=== PATIENT | male | born 1930 | race Caucasian/White ===

== ENCOUNTER 2022-02-17 21:01 | Inpatient (IN) ==
[2022-02-17] MEDS ORDERED: MORPHINE 2 MG/1 ML SYRINGE IV ONE (21:34)
[2022-02-17] MEDS ORDERED: ONDANSETRON 4 MG/2 ML VIAL IV ONE (21:34)
[2022-02-17] MEDS ORDERED: SODIUM CHLORIDE 0.9% 500 ML IV STA (21:34)
[2022-02-17 22:05] LABS: Basophils # 0.1 10*3/uL (0.0-0.2); Basophils % 0.4 % (0.0-0.8); Eosinophils # 0.1 10*3/uL (0.0-0.87); Eosinophils % 0.5 % (0.00-10.9); Hematocrit 34.2 VOL% (42.0-52.0); Hemoglobin 11.2 GM/DL (14.0-18.0); Immature Granulocytes % 0.6 %; Lymphocytes # 1.4 10*3/uL (1.4-4.0); Lymphocytes % 8.3 % (21.2-54.2); Mean Corpuscular HGB Conc 32.7 GM/DL (32-36); Mean Platelet Volume 10.2 FL (9.6-12.0); Monocytes # 0.9 10*3/uL (0.11-0.8); Monocytes % 5.1 % (1.7-12.7); Neutrophils % 85.1 % (38.7-73.9); Platelet Count 209 T/CUMM (130-400); Red Blood Count 3.64 MC/CUMM (3.8-5.5); Red Cell Distribution Width 12.5 % (9.3-17.3)
[2022-02-17 22:17] LABS: PT Patient Result 10.7 SECS (10.1-12.1)
[2022-02-17 22:23] LABS: Albumin 3.7 G/DL (3.4-5.0); Bilirubin,Total 0.4 MG/DL (0.20-1.00); Calcium 8.7 MG/DL (8.5-10.1); Osmolality,Calculated 290.3 MOS/KG (273-304); Potassium 4.3 MMOL/L (3.5-5.1); Total Protein 6.8 G/DL (6.4-8.2)
[2022-02-17] MEDS ORDERED: PIPERACILLIN/TAZOBACTAM 3,375 MG in SODIUM CHLORIDE 0.9% 100 ML IV STA (23:15)
[2022-02-17] MEDS ORDERED: MAGNESIUM CITRATE 300 ML BOTTLE PO STA (23:15)
[2022-02-17] MEDS ORDERED: MORPHINE 2 MG/1 ML SYRINGE IV PRN (23:27)
[2022-02-17] MEDS ORDERED: ACETAMINOPHEN 325 MG TABLET PO PRN (23:27)
[2022-02-17] MEDS ORDERED: ONDANSETRON 4 MG/2 ML VIAL IV PRN (23:27)
[2022-02-17] MEDS ORDERED: MAGNESIUM HYDROXIDE SUSP 30 ML UDCUP PO STA (23:31)
[2022-02-17] MEDS: SODIUM CHLORIDE 0.9% 1,000 ML IV SCH (23:50)
[2022-02-18 03:14] LABS: Mucus,Urine Occasional /LPF (Occasional); RBC,Urine 1 /HPF (0-4); Squamous Epithelial Cell,Urine Occasional /HPF (0-10)
[2022-02-18 03:15] LABS: Bilirubin,Urine Negative (Negative); Blood, Urine Negative (Negative); Glucose,Urine (UA) Negative (Negative); Ketones,Urine Trace mg/dL (Negative); Nitrite,Urine Negative (Negative); Protein,Urine Negative (Negative); Urine Appearance Clear (Clear); Urine Color Yellow (Yellow); Urine Specific Gravity > 1.030 (1.001-1.035); Urine Urobilinogen 0.2 eU/dL (<2.0); Urine pH 5.5 (4.5-8.0)
[2022-02-18 05:58] LABS: Basophils % 0.2 % (0.0-0.8); Eosinophils % 0.1 % (0.00-10.9); Hematocrit 31.3 VOL% (42.0-52.0); Hemoglobin 10.5 GM/DL (14.0-18.0); Immature Granulocytes % 0.3 %; Immature Granulocytes Absolute 0.04 #; Lymphocytes # 1.5 10*3/uL (1.4-4.0); Lymphocytes % 10.9 % (21.2-54.2); Mean Corpuscular HGB Conc 33.5 GM/DL (32-36); Mean Corpuscular Volume 93.2 FL (87-102); Mean Platelet Volume 10.6 FL (9.6-12.0); Monocytes # 0.8 10*3/uL (0.11-0.8); Monocytes % 6.2 % (1.7-12.7); Neutrophils % 82.3 % (38.7-73.9); Platelet Count 191 T/CUMM (130-400); Red Blood Count 3.36 MC/CUMM (3.8-5.5); Red Cell Distribution Width 12.7 % (9.3-17.3); White Blood Count 13.5 T/CUMM (4-12)
[2022-02-18 06:25] LABS: Albumin 3.2 G/DL (3.4-5.0); Bilirubin,Total 0.8 MG/DL (0.20-1.00); Calcium 8.4 MG/DL (8.5-10.1); Potassium 4.1 MMOL/L (3.5-5.1); Total Protein 6.2 G/DL (6.4-8.2)
[2022-02-18] MEDS ORDERED: NITROGLYCERIN SL 0.4 MG TABLET SL PRN (07:19)
[2022-02-18] MEDS: ASPIRIN EC 81 MG TABLET PO SCH (08:52)
[2022-02-18] MEDS: FOLIC ACID 1 MG TABLET PO SCH (08:52)
[2022-02-18] MEDS: METOPROLOL SUCCINATE XL 25 MG TABLET PO SCH (08:52)
[2022-02-18] MEDS: PANTOPRAZOLE 40 MG TABLET PO SCH (08:52)
[2022-02-18] MEDS: DOCUSATE SODIUM 100 MG CAPSULE PO SCH ×2 (09:00→20:12)
[2022-02-18] MEDS: PIPERACILLIN/TAZOBACTAM 3,375 MG in SODIUM CHLORIDE 0.9% 100 ML IV SCH ×3 (09:01→23:09)
[2022-02-18] MEDS: SODIUM CHLORIDE 0.9% 1,000 ML IV SCH (14:16)
[2022-02-18] MEDS ORDERED: SIMVASTATIN 40 MG TABLET PO SCH (21:00)
[2022-02-18] MEDS ORDERED: TERAZOSIN 1 MG CAPSULE PO SCH (21:00)
[2022-02-19] MEDS: SODIUM CHLORIDE 0.9% 1,000 ML IV SCH (02:52)
[2022-02-19] MEDS: METOPROLOL SUCCINATE XL 25 MG TABLET PO SCH (08:44)
[2022-02-19] MEDS: DOCUSATE SODIUM 100 MG CAPSULE PO SCH (08:44)
[2022-02-19] MEDS: ASPIRIN EC 81 MG TABLET PO SCH (08:44)
[2022-02-19] MEDS: FOLIC ACID 1 MG TABLET PO SCH (08:44)
[2022-02-19] MEDS: PANTOPRAZOLE 40 MG TABLET PO SCH (10:44)
[2022-02-19 11:27] VITALS: BP 129/73
[2022-02-19] MEDS: PIPERACILLIN/TAZOBACTAM 3,375 MG in SODIUM CHLORIDE 0.9% 100 ML IV SCH (12:40)
== END 2022-02-19 12:36 | disposition home or self-care (01) | DRG 390 ==
LOC: N.ED 21:01 → N.EDINP 23:27 → N.3E 02-18 01:38
PROVIDERS: ADMIT Family Medicine; ATTEND Family Medicine